=== PATIENT | female | born 1955 | race Caucasian/White ===

== ENCOUNTER 2023-03-06 15:13 | Emergency (ER) | payer OTHER ==
[~2023-03-06] VITALS: Ht 162.6 cm; Wt 65.8 kg
[2023-03-06] MEDS ORDERED: GLUMETZA1000 MG (15:36)
[2023-03-06] MEDS ORDERED: ZESTRIL5 MG (15:36)
[2023-03-06] MEDS ORDERED: GLIMEPIRIDE1 MG (15:36)
== END 2023-03-06 17:59 | disposition home or self-care (01) ==
LOC: ER 15:14
DX: M62.830 Muscle spasm of back (principal)